=== PATIENT | male | born 1955 | race Caucasian/White ===

== ENCOUNTER 2023-02-25 21:00 | Emergency (ER) | payer MEDICARE, MEDICAID, SELFPAY ==
[2023-02-25] VITALS (8 sets, daily range): BP systolic 86–133; BP diastolic 53–74; PULSE 58–75; RESP 12–16; TEMP 36.6; O2SAT 93–99; BMI 20.7
--- NOTE | 2023-02-25 21:29 | ECG_ITS ---
Test Reason : HYPOTENSIVE Blood Pressure : / mmHG Vent. Rate : 059 BPM Atrial Rate : 059 BPM P-R Int : 208 ms QRS Dur : 084 ms QT Int : 408 ms P-R-T Axes : 028 071 073 degrees QTc Int : 403 ms Sinus bradycardia Otherwise normal ECG No previous ECGs available Referred By: Generic ED Physician Electronically Signed By:TAMAR SHI MD
--- NOTE | 2023-02-25 21:53 | ED_ITS ---
HPI - Weakness General Chief complaint: Weakness Stated complaint: dizziness Time Seen by Provider: 02/25/23 21:53 Source: patient Mode of arrival: ambulatory Limitations: no limitations History of Present Illness HPI Narrative: Patient with history of hypertension, aortic aneurysm status post repair peripheral arterial disease on aspirin and Plavix brought by EMS for near- syncope episode after walking 2 mi a. Patient said that he does walk all the time and had lightheadedness dizziness episodes multiple times but today was worse when EMS reached blood pressure was 90/50 responded to 200 cc of IV bolus patient denies any palpitation with chest pain at this time patient feels better. Related Data Allergies Allergy/AdvReac Type Severity Reaction Status Date / Time Penicillins [PCN] Allergy Unknown Verified 02/25/23 21:27 Review of Systems Review of Systems: Yes all other systems are reviewed and are negative [facility]LY [facility] Social History Social History Smoked in Last 30 Days: No Use of substances other than those prescribed or required for medical reasons: No Substance Use Type: Marijuana Advance Directives: No Advance Directives Information Provided: No Physical Exam Vital Signs: Vital Signs: Last Vital Signs Temp 97.5 F 02/26/23 00:29 Pulse 65 02/26/23 01:32 Resp 16 02/26/23 00:29 BP 116/72 02/26/23 01:32 Pulse Ox 96 02/26/23 00:29 O2 Del Method Room Air 02/26/23 00:29 BMI result Body Mass Index 20.7 Appearance: Alert. Oriented X3. No acute distress. Eyes: No pallor or icterus ENT: Pharynx normal. Oral Mucosa moist Neck: Normal inspection. Neck supple. CVS: Normal heart rate and rhythm. Pulses normal. No murmur/rub or gallop Respiratory: No respiratory distress. Equal air entry bilateral, no wheezing/rales/rhonchi Abdomen: Soft and nontender. Bowel sounds are present, no mass palpable, no CVA tenderness Skin: Skin warm and dry. Normal skin color. Normal skin turgor. Extremities: No lower extremity edema. No calf tenderness Neuro: Oriented X 3. No motor deficit. No sensory deficit.No cerebellar signs , cranial nerves II-XII intact Medications Administered Discontinued Medications Generic Name Dose Route Start Last Admin Trade Name Freq PRN Reason Stop Dose Admin Sodium Chloride 1,000 mls @ 999 mls/hr 02/25/23 23:29 02/26/23 01:28 Ns IV 02/26/23 00:29 Infused .Q1H1M ONE Infusion Medical Decision Making Medical Decision Making [facility] Narrative: Patient with acute dizziness secondary to poor oral intake orthostatic positive with elevated BUN creatinine will recheck vitals after 1 L bolus Patient feeling much better after 1 L bolus repeat orthostatics are normal will discharge patient home Lab Data [facility] Lab Attestation statement: I reviewed the patient's lab results. 02/25/23 21:56 02/25/23 21:56 Labs: Lab Results 02/25/23 02/25/23 02/25/23 Range/Units 21:56 21:56 21:56 WBC 4.5 L (4.8-10.8) X10*3/uL RBC 4.06 L (4.60-5.80) X10*6/uL Hgb 12.7 L (14.0-18.0) g/dl Hct 37.0 L (42.0-52.0) % MCV 91.1 (80.0-98.0) fL MCH 31.3 (27.0-33.0) pg MCHC 34.3 (31.0-36.0) g/dl RDW 13.8 (11.0-16.0) % Plt Count 184 (160-400) X10*3/uL MPV 10.8 (9.4-12.4) fL Immature Gran % (Auto) 0.2 (0.0-0.4) % Neut % (Auto) 60.0 (45-73) % Lymph % (Auto) 20.0 (20-40) % [place] % (Auto) 18.0 H (2-11) % Eos % (Auto) 0.7 (0-4) % Baso % (Auto) 1.1 (0-2) % Lymph # (Auto) 0.9 L (1.2-4.9) X10*3/uL [place] # (Auto) 0.8 (0.1-1.2) X10*3/uL Eos # (Auto) 0.0 (0.0-0.4) X10*3/uL Baso # (Auto) 0.1 (0.0-0.2) X10*3/uL Abs Immat Gran (auto) 0.01 (0.00-0.03) X10*3/uL Absolute Neuts (auto) 2.7 (2.0-8.3) x10*3/uL Absolute Nucleated RBC 0.000 (0.0-0.012) X10*3/uL Nucleated RBC % (auto) 0.0 (0.0-0.2) /100WBC Sodium 132 L (135-145) mmol/L Potassium 4.2 (3.3-5.1) mmol/L Chloride 98 (96-108) mmol/L Carbon Dioxide 27 (22-29) mmol/L Anion Gap 11 L (12-20) BUN 20 H (9-16) mg/dL Creatinine 1.58 H (0.5-1.4) mg/dL Estim Creat Clear Calc 41.6 Estimated GFR 44 Random Glucose 106 (60-115) mg/dL Calcium 8.5 (8.4-10.2) mg/dL Troponin I High Sens 5.7 (<3.5-35.0) ng/L Discharge Plan Discharge Clinical Impression: Dehydration, ANDREW (acute kidney injury), Near syncope Patient Disposition: Home, Self-Care Instructions: Dehydration (ED), Acute Kidney Injury (DC) Additional Instructions: Drink plenty of fluid Follow-up with your PCP in 1 week to recheck your kidney functions Interventions: ED Discharge Assessment Last Done: 02/26/23 03:04 Discharge Date/Time: 02/26/23 03:04
[2023-02-25 22:03] LABS: MANUAL DIFF FLAG NO
[2023-02-25 22:09] LABS: Basophils Absolute Auto 0.1 X10*3/uL (0.0-0.2); Basophils Percent Auto 1.1 % (0-2); Eosinophils Percent Auto 0.7 % (0-4); Hemoglobin 12.7 g/dl (14.0-18.0); Imm Gran Abs Auto 0.01 X10*3/uL (0.00-0.03); Imm Gran Pct Auto 0.2 % (0.0-0.4); Lymphocytes Absolute Auto 0.9 X10*3/uL (1.2-4.9); Mean Corpuscular HGB Conc 34.3 g/dl (31.0-36.0); Mean Corpuscular Hemoglobin 31.3 pg (27.0-33.0); Mean Corpuscular Volume 91.1 fL (80.0-98.0); Mean Platelet Volume 10.8 fL (9.4-12.4); Monocytes Absolute Auto 0.8 X10*3/uL (0.1-1.2); Neutrophils Absolute Auto 2.7 x10*3/uL (2.0-8.3); Platelet Count 184 X10*3/uL (160-400); Red Blood Count 4.06 X10*6/uL (4.60-5.80); Red Cell Distribution Width 13.8 % (11.0-16.0); White Blood Count 4.5 X10*3/uL (4.8-10.8)
--- NOTE | 2023-02-25 22:18 | PC.NURSE ---
Pt aox3 resting at the bedside in no apparent distress. Breaths are even regular and unlabored. Sinus siena on monitor with hr of 57. Abd is soft and non tender. Reports no pain just tired . + orthostatics. BP 86/53 when standing. VSS while sitting. MD aware.
[2023-02-25 22:23] LABS: Anion Gap 11 (12-20); Blood Urea Nitrogen 20 mg/dL (9-16); Calcium 8.5 mg/dL (8.4-10.2); Carbon Dioxide 27 mmol/L (22-29); Chloride 98 mmol/L (96-108); Creatinine Clr Calc Pharmacy 41.6; Estimated Glomerular Filt Rate 44; Glucose Random 106 mg/dL (60-115); Potassium 4.2 mmol/L (3.3-5.1); Sodium 132 mmol/L (135-145)
[2023-02-25 22:35] LABS: Troponin-I High Sensitivity 5.7 ng/L (<3.5-35.0)
[2023-02-25] MEDS: 0.9 % Sodium Chloride 1,000 ML 999 ML IV (23:35)
[2023-02-26 00:29] VITALS: BP 120/66; PULSE 64; RESP 16; TEMP 36.4; O2SAT 96
[2023-02-26 01:30] VITALS: BP 133/62; PULSE 64
[2023-02-26 01:31] VITALS: BP 134/69; PULSE 63
[2023-02-26 01:32] VITALS: BP 116/72; PULSE 65
--- NOTE | 2023-02-26 01:57 | MHC.EDTECH ---
Call out to [facility] @[id number] S transport back to [facility]
== END 2023-02-26 03:04 | disposition home or self-care (01) ==
PROVIDERS: Emergency Provider Internal Medicine; PCP Family Medicine
DX: E86.0 Dehydration (principal); R55 Syncope and collapse; F12.90 Cannabis use, unspecified, uncomplicated; Z79.899 Other long term (current) drug therapy
CPT/HCPCS: 36415; 80048; 84484; 85025; 93005; 96360; 99284; 99285